=== PATIENT | female | born 1990 | race Caucasian/White ===

== ENCOUNTER 2016-11-22 11:59 | Day surgery (SDC) | payer OTHER ==
[~2016-11-22] VITALS: Ht 162.6 cm; Wt 78.5 kg
[~2016-11-22 11:59] MED LIST: ADVIL,NUPRIN,M200 MG PO; ENDOCET 5-3251 EACH PO; IBUPROFEN800 MG PO; IRON325 M1 PO; KEFLEX500 MG PO; MAGNESIUM30 MG PO; PRENATAL TABLE1 EAC3 PO; VENTOLIN HFA18 GM IH; ZOFRAN4 MG PO; ZYRTEC10 M3 PO
[2016-11-22 12:57] VITALS: BP 121/71
[2016-11-22 13:06] LABS: EOSINOPHIL (%) 1.6 % (0-5); EOSINOPHIL COUNT 0.1 K/uL (0-0.3); HEMATOCRIT 33.6 % (36.0-46.0); IMMATURE GRANULOCYTE (%) 0.2 % (0.0-0.7); LYMPHOCYTE COUNT 1.8 K/uL (1.0-2.8); MCH 28.4 PG (29.0-34.0); MCHC 33.9 G/DL (30.0-36.0); MCV 83.6 FL (83-99); MEAN PLAT.VOLUME 10.4 uM^3 (9.5-12.4); MONOCYTE COUNT 0.4 K/uL (0-0.8); NEUTROPHIL (%) 71.6 % (45-76); NEUTROPHIL COUNT 5.9 K/uL (1.8-6.4); PLATELET COUNT 214 K/uL (156-360); RBC DIS.WIDTH-SD 39.3 % (39-53); RED BLOOD COUNT 4.02 M/uL (3.80-5.20); WHITE BLOOD COUNT 8.3 K/uL (4.1-10.2)
[2016-11-22] MEDS ORDERED: IBUPROFEN800 MG PO (13:51)
[2016-11-22] MEDS ORDERED: HYDROCODON-ACE1 EAC7 PO (13:51)
[2016-11-22 15:29] VITALS: BP 129/75
[2016-11-22 16:20] VITALS: BP 121/67
== END 2016-11-22 16:20 | disposition home or self-care (01) ==
LOC: SDC 11:59
PROVIDERS: Obstetrics & Gynecology
PROC: 10D17ZZ Extraction of Products of Conception, Retained, Via Natural or Artificial Opening (ICD-10-PCS; principal; 2016-11-22)
DX: O02.1 Missed abortion (principal); J45.909 Unspecified asthma, uncomplicated
CPT/HCPCS: 85025; 86850; 86900; 86901; 88305; J0690; J1170; J1885; J2250; J3010

== ENCOUNTER 2017-09-22 08:51 | Inpatient (IN) | payer OTHER ==
[~2017-09-22] VITALS: Ht 162.6 cm; Wt 84.0 kg
[2017-09-22] VITALS (7 sets, daily range): BP systolic 118–127; BP diastolic 66–82
[~2017-09-22 08:51] MED LIST changes: +COLACE100 MG PO; +HYDROCODON-ACE1 EAC7 PO; +TUMS500 MG PO
[2017-09-22 09:51] LABS: EOSINOPHIL (%) 0.6 % (0-5); EOSINOPHIL COUNT 0.1 K/uL (0-0.3); HEMATOCRIT 32.9 % (36.0-46.0); IMMATURE GRANULOCYTE (%) 1.1 % (0.0-0.7); IMMATURE GRANULOCYTE COUNT 0.1 K/uL; INSTRUMENT ABS NEUTROPHIL CT 7.1 K/uL; LYMPHOCYTE COUNT 1.3 K/uL (1.0-2.8); MCH 26.5 PG (29.0-34.0); MCHC 31.3 G/DL (30.0-36.0); MCV 84.6 FL (83-99); MEAN PLAT.VOLUME 10.4 uM^3 (9.5-12.4); MONOCYTE (%) 5.4 % (3-12); MONOCYTE COUNT 0.5 K/uL (0-0.8); NEUTROPHIL (%) 77.8 % (45-76); NEUTROPHIL COUNT 7.1 K/uL (1.8-6.4); PLATELET COUNT 181 K/uL (156-360); RBC DIS.WIDTH-CV 14.1 % (11.8-14.6); RBC DIS.WIDTH-SD 42.9 % (39-53); RED BLOOD COUNT 3.89 M/uL (3.80-5.20); WHITE BLOOD COUNT 9.1 K/uL (4.1-10.2)
[2017-09-22] MEDS ORDERED: ENDOCET 5-3251 EACH PO (15:36)
[2017-09-22] MEDS ORDERED: IBUPROFEN800 MG PO (15:36)
[2017-09-23] VITALS (7 sets, daily range): BP systolic 105–123; BP diastolic 63–75
[2017-09-23 06:59] LABS: EOSINOPHIL (%) 0.9 % (0-5); EOSINOPHIL COUNT 0.1 K/uL (0-0.3); HEMATOCRIT 30.1 % (36.0-46.0); IMMATURE GRANULOCYTE (%) 0.8 % (0.0-0.7); IMMATURE GRANULOCYTE COUNT 0.1 K/uL; INSTRUMENT ABS NEUTROPHIL CT 7.9 K/uL; LYMPHOCYTE COUNT 1.3 K/uL (1.0-2.8); MCH 26.9 PG (29.0-34.0); MCHC 31.9 G/DL (30.0-36.0); MCV 84.3 FL (83-99); MEAN PLAT.VOLUME 10.5 uM^3 (9.5-12.4); MONOCYTE (%) 5.9 % (3-12); MONOCYTE COUNT 0.6 K/uL (0-0.8); NEUTROPHIL (%) 78.7 % (45-76); NEUTROPHIL COUNT 7.9 K/uL (1.8-6.4); PLATELET COUNT 151 K/uL (156-360); RBC DIS.WIDTH-SD 43.2 % (39-53); RED BLOOD COUNT 3.57 M/uL (3.80-5.20)
[2017-09-24 02:58] VITALS: BP 118/64
[2017-09-24 07:38] VITALS: BP 114/68
[2017-09-24 11:18] VITALS: BP 120/71
== END 2017-09-24 13:05 | disposition home or self-care (01) | DRG 766 ==
LOC: 2SOUTH 08:51 → 2WEST 09:12 → 2SOUTH 13:27 → 2WEST 09-24 13:05
PROVIDERS: Obstetrics & Gynecology Gynecology
PROC: 10D00Z1 Extraction of Products of Conception, Low, Open Approach (ICD-10-PCS; principal; 2017-09-22)
DX: O34.211 Maternal care for low transverse scar from previous cesarean delivery (principal); Z37.0 Single live birth; Z3A.39 39 weeks gestation of pregnancy; J45.909 Unspecified asthma, uncomplicated; O99.52 Diseases of the respiratory system complicating childbirth; K21.9 Gastro-esophageal reflux disease without esophagitis; O99.62 Diseases of the digestive system complicating childbirth; K42.9 Umbilical hernia without obstruction or gangrene; O32.1XX1 Maternal care for breech presentation, fetus 1; Z79.51 Long term (current) use of inhaled steroids
CPT/HCPCS: 85025; 86850; 86900; 86901; J0690; J1885; J2274; J2590; J3010; J7120